=== PATIENT | female | born 1995 | race Caucasian/White ===

== ENCOUNTER 2016-10-14 12:06 | Day surgery (SDC) | payer OTHER ==
[2016-10-14 13:13] LABS: Hematocrit 42 % (35-47); Hemoglobin 13.6 g/dl (12.0-16.0); Mean Corpuscular HGB Conc 33 g/dl (31-36); Mean Corpuscular Hemoglobin 28 pg (27-31); Mean Corpuscular Volume 87 fL (80-97); Mean Platelet Volume 9 um3 (7.4-10.4); Red Blood Count 4.79 10^6/ul (4.0-5.4); Red Cell Distribution Width 13 % (10.5-15)
[2016-10-14 13:32] LABS: ALT 13 U/L (7-52); AST 14 U/L (13-39); Albumin 4.1 g/dL (3.2-5.2); Alkaline Phosphatase 48 U/L (34-104); Amylase 41 U/L (29-103); Anion Gap 6 mmol/L (2-11); BUN/Creatinine Ratio 21.8 (8-20); Blood Urea Nitrogen 12 mg/dL (6-24); C Reactive Protein 17.96 mg/L (< 5.00); CO2 Carbon Dioxide 25 mmol/L (22-32); Calcium 9.4 mg/dL (8.6-10.3); Chloride 103 mmol/L (101-111); EGFR African American 183.1 (>60); EGFR Non-African American 142.4 (>60); Globulin 3.1 g/dL (2-4); Glucose 83 mg/dL (70-100); Lipase < 10 U/L (11.0-82.0); Potassium 3.9 mmol/L (3.5-5.0); Sodium 134 mmol/L (133-145); Total Protein 7.2 g/dL (6.4-8.9)
[2016-10-14] MEDS ORDERED: Iohexol 300* (CONTRAST) 10 ML SDV IV ONE (13:41)
--- NOTE | 2016-10-14 15:22 | RAD ---
Indication: Right lower quadrant pain. Contrast: Administered 91.0 ml of OMNIPAQUE 300 mgi/ml. CT of the abdomen and pelvis was performed after oral and IV contrast administration. Coronal and sagittal reconstructed images were obtained.. The lung bases demonstrate no pleural fluid, nodules or masses. Heart is of normal size without evidence of pericardial effusion. Liver is normal size. No focal lesions or intrahepatic ductal dilatation is noted. The gallbladder demonstrates no catheter gallstones. No pericholecystic fluid or wall thickening is noted. The spleen is normal in size. Pancreas demonstrates no mass or pancreatic duct dilatation. Common duct is not dilated. No adrenal lesion is noted. The kidneys demonstrate symmetric nephrograms. No focal lesions or hydronephrosis is noted. No retroperitoneal lymphadenopathy is noted. Aorta and inferior vena cava are unremarkable. CT of the pelvis demonstrates dilated appendix with periappendiceal infiltration of FAT measuring up to 10 mm. Findings are suspicious for appendicitis. No evidence of periappendiceal abscess is noted. The uterus and ovaries are unremarkable. The colon is filled with stool. The bony structures are grossly unremarkable. IMPRESSION: Findings consistent with acute appendicitis without evidence of periappendiceal abscess.
[2016-10-14] MEDS ORDERED: Famotidine IV* 10 MG/ML 2 ML (20 mg) IV ONE (15:25)
[2016-10-14] MEDS ORDERED: Buffered Lidocaine 1% SYR 3ML* 3 ML/SYR SYRINGE INTRADERM ONE (15:25)
[2016-10-14] MEDS ORDERED: PROCHLORPERAZINE INJ 5 MG/ML 2 ML VIAL IV PRN (15:28)
[2016-10-14] MEDS ORDERED: fentaNYL* 50 MCG/ML 2 ML VIAL (100 MCG VIAL) IV PRN (15:28)
[2016-10-14] MEDS ORDERED: Morphine INJ* 2 MG/ML 1 ML CARPUJECT IV PRN (15:28)
[2016-10-14] MEDS ORDERED: oxyCODONE TAB* 5 MG TAB PO PRN (15:28)
[2016-10-14] MEDS ORDERED: Ketorolac INJ* 30 MG/ML 1 ML VIAL IV PRN (15:28)
[2016-10-14] MEDS ORDERED: Bupivacaine 0.5% W/EPI SDV* 30 ML VIAL ONE (15:51)
[2016-10-14] MEDS ORDERED: Famotidine IV* 10 MG/ML 2 ML (20 mg) ONE (15:55)
[2016-10-14] MEDS ORDERED: fentaNYL* 50 MCG/ML 2 ML VIAL (100 MCG VIAL) ONE ×3 (15:59→17:37)
[2016-10-14] MEDS ORDERED: KETAMINE HCL* 50 MG/ML 10 ML VIAL ONE (16:10)
[2016-10-14] MEDS ORDERED: Atracurium* 10 MG/ML 10 ML VIAL ONE (16:10)
[2016-10-14] MEDS ORDERED: Midazolam* 1 MG/ML 5 ML VIAL (5 MG) ONE (16:10)
--- NOTE | 2016-10-14 16:19 | ED ---
zee Ramirez Timothy, scribed for Matt Shultz MD on 10/14/16 at 1223 . Abdominal Pain/Female - HPI Summary HPI Summary: Gely Soriano is a 20 yo female presenting to [facility] with 4/10 RLQ pain since 0350 this morning. She originally presented to [facility] who recommended she present to [facility] for r/o of appendicitis. Her pain is worse when she applies pressure. She states she was nauseous this morning, but did not vomit. Her LNMP was 09/16/16, she states she is very regular and is on hormonal control. She denies any PMHx, but has a Rx for Xanax for anxiety which she takes only rarely. - History of Current Complaint Stated Complaint: ABD PAIN Time Seen by Provider: 10/14/16 12:17 Hx Obtained From: Patient Onset/Duration: Sudden Onset, Lasting Hours, Still Present Timing: Constant Severity Initially: Moderate Severity Currently: Moderate Pain Intensity: 4 Pain Scale Used: 0-10 Numeric Location: Discrete At: RLQ Radiates: No Aggravating Factor(s): Other: - pressure Alleviating Factor(s): Nothing Associated Signs and Symptoms: Positive: Nausea Allergies/Adverse Reactions: Allergies Allergy/AdvReac Type Severity Reaction Status Date / Time No Known Allergies Allergy Verified 10/14/16 14:00 PMH/Surg Hx/FS Hx/Imm Hx Previously Healthy: Yes Infectious Disease History: No Infectious Disease History: Denies: Traveled Outside the [place] in Last 30 Days - Family History Known Family History: Positive: Respiratory Disease - COPD, Other - breast CA - Social History Occupation: Student Lives: Alone Alcohol Use: Rare Hx Substance Use: No Substance Use Type: Reports: None Hx Tobacco Use: No Smoking Status (MU): Never Smoked Tobacco Review of Systems Positive: Abdominal Pain All Other Systems Reviewed And Are Negative: Yes Physical Exam - Summary Physical Exam Summary: VITAL SIGNS: Reviewed. GENERAL: Patient is a well developed and nourished female who is lying comfortable in the stretcher. Patient is not in any acute respiratory distress. HEAD AND FACE: Normocephalic and atraumatic. EYES: PERRLA, EOMI x 2, No injected conjunctiva. EARS: Hearing grossly intact. Ear canals and tympanic membranes are WNL. MOUTH: Oropharynx within normal limits. NECK: Supple, trachea is midline, no adenopathy, no JVD. CHEST: Symmetric, no tenderness at palpation LUNGS: Clear to auscultation bilaterally. No wheezing or crackles. CVS: RRR,, S1 and S2 present, no murmurs or gallops appreciated. ABDOMEN: Soft, RLQ tenderness. No signs of distention. Positive bowel sounds. No rebound no guarding, and no masses palpated. No abdominal bruit or pulsations. EXTREMITIES: FROM in all major joints, no edema, no cyanosis or clubbing. NEURO: Alert and oriented x 3. No acute neurological deficits. Speech is normal. SKIN: Dry and warm Triage Information Reviewed: Yes Vital Signs On Initial Exam: Initial Vitals Temp Pulse Resp BP Pulse Ox 99.6 F 93 16 119/97 100 10/14/16 12:09 10/14/16 12:09 10/14/16 12:09 10/14/16 12:09 10/14/16 12:09 Vital Signs Reviewed: Yes Diagnostics - Vital Signs Vital Signs Temp Pulse Resp BP Pulse Ox 10/14/16 12:09 99.6 F 93 16 119/97 100 - Laboratory Lab Results: Lab Results 10/14/16 10/14/16 10/14/16 Range/Units 13:05 13:05 13:05 WBC 11.0 H (3.5-10.8) 10^3/ul RBC 4.79 (4.0-5.4) 10^6/ul Hgb 13.6 (12.0-16.0) g/dl Hct 42 (35-47) % MCV 87 (80-97) fL MCH 28 (27-31) pg MCHC 33 (31-36) g/dl RDW 13 (10.5-15) % Plt Count 318 (150-450) 10^3/ul MPV 9 (7.4-10.4) um3 Neut % (Auto) 73.7 (38-83) % Lymph % (Auto) 18.7 L (25-47) % Cache % (Auto) 6.7 (1-9) % Eos % (Auto) 0.6 (0-6) % Baso % (Auto) 0.3 (0-2) % Absolute Neuts (auto) 8.1 H (1.5-7.7) 10^3/ul Absolute Lymphs (auto) 2.1 (1.0-4.8) 10^3/ul Absolute Monos (auto) 0.7 (0-0.8) 10^3/ul Absolute Eos (auto) 0.1 (0-0.6) 10^3/ul Absolute Basos (auto) 0 (0-0.2) 10^3/ul Absolute Nucleated RBC 0.01 10^3/ul Nucleated RBC % 0.1 Sodium 134 (133-145) mmol/L Potassium 3.9 (3.5-5.0) mmol/L Chloride 103 (101-111) mmol/L Carbon Dioxide 25 (22-32) mmol/L Anion Gap 6 (2-11) mmol/L BUN 12 (6-24) mg/dL Creatinine 0.55 (0.51-0.95) mg/dL Est GFR ( Amer) 183.1 (>60) Est GFR (Non-Af Amer) 142.4 (>60) BUN/Creatinine Ratio 21.8 H (8-20) Glucose 83 (70-100) mg/dL Lactic Acid 0.8 (0.5-2.0) mmol/L Calcium 9.4 (8.6-10.3) mg/dL Total Bilirubin 0.60 (0.2-1.0) mg/dL AST 14 (13-39) U/L ALT 13 (7-52) U/L Alkaline Phosphatase 48 (34-104) U/L C-Reactive Protein 17.96 H (< 5.00) mg/L Total Protein 7.2 (6.4-8.9) g/dL Albumin 4.1 (3.2-5.2) g/dL Globulin 3.1 (2-4) g/dL Albumin/Globulin Ratio 1.3 (1-3) Amylase 41 (29-103) U/L Lipase < 10 L (11.0-82.0) U/L Beta HCG, Quant 0.60 mIU/mL Result Diagrams: 10/14/16 13:05 10/14/16 13:05 Lab Statement: Any lab studies that have been ordered have been reviewed, and results considered in the medical decision making process. - CT A/P CT Interpretation: Positive (See Comments) - IMPRESSION: Findings consistent with acute appendicitis without evidence of periappendiceal abscess. CT Interpretation Completed By: Radiologist Abdominal Pain Fem Course/Dx - Course Course Of Treatment: . Gely Soriano is a 20 yo female presenting to [facility] with 4/10 RLQ pain since 349 this morning. She originally presented to [facility] who recommended she present to [facility] for r/o of appendicitis. Her pain is worse when she applies pressure. She states she was nauseous this morning, but did not vomit. Her LNMP was 09/16/16, she states she is very regular and is on hormonal control. She denies any PMHx, but has a Rx for Xanax for anxiety which she takes only rarely. Blood work shows and increased WBCs of 11, CRP od 17.9. Abdominal and pelvic CT IMPRESSION: Findings consistent with acute appendicitis without evidence of periappendiceal abscess. I discussed the case with Dr. Baldwin who will be consulting for the patient. After his assessment he will admit the patient to his services.\. She continues to be NPO and Patient is hemodynamically stable and A+O x 3. - Diagnoses Differential Diagnosis: Positive: Appendicitis, Constipation, Diverticulitis, Ovarian Cyst, Renal Colic Provider Diagnoses: Appendicitis - Provider Notifications Discussed Care Of Patient With: 1515 - Dr. Hare (radiology) - Informed that Pt has appendicitis. 1517 - Dr. Baldwin (surgery) - Discussed Pt condition, agrees to evaluate Pt. Instructed by Provider To: Admit As Inpatient Discharge - Discharge Plan Condition: Stable Disposition: ADMITTED TO [facility] Discharge Disposition Comment: admitted for Tx of appendicitis The documentation as recorded by the zee bolton Timothy accurately reflects the service I personally performed and the decisions made by me, Matt Shultz MD.
[2016-10-14] MEDS ORDERED: ceFOXitin 2 GM IVPREMIX* 2 GM/50 ML BAG ONE (16:20)
--- NOTE | 2016-10-14 16:29 | HP ---
H&P (Free Text) History and Physical: CC: RLQ ABD PAIN HPI: 20 YO F WITH SUDDEN ONSET OF ABD PAIN AT 3 AM LOCALIZING TO RLQ, WORSE WITH MOV'T/SNEEZE/COUGH. +N/-V. +ANOREXIA. HAD DIARRHEA YESTERDAY. ATE NORMALLY LAST PM. SHE WENT TO [facility] THEN WAS SENT TO ED FOR R/O APPENDICITIS. IN ER SHE WAS NOTED TO HAVE ELEVATED WBC AND WAS SENT FOR CT DEMONSTRATING A DILATED, FLUID FILLED APPENDIX WITH PERIAPPENDICEAL INFLAMMATORY CHANGES, C/E ACUTE APPENDICITIS. SHE HAS NO DYSURIA/HEMATURIA/VAG DISCHARGE. SHE HAS HAD NO SIMILAR PAIN IN PAST. PMH: UNREMARKABLE PSH: UNREMARKABLE MEDS: OCP NKDA SH: -TOB; ETOH X 4/WK; NO IVDA; [employer], LIVES IN [facility] CAMPUS WITH ROOMMATES. FH: UNREMARKABLE. NEG FOR ANESTHESIA COMPLICATIONS OR BLOOD CLOTS. ROS: 14 PT REVIEW COMPLETED. FINDINGS ABOVE OTHERWISE NEGATIVE. PE: Vital Signs Temp 99.6 F 10/14/16 12:09 Pulse 81 10/14/16 14:00 Resp 16 10/14/16 12:09 BP 111/80 10/14/16 13:30 Pulse Ox 98 10/14/16 14:00 HEENT: NCAT; EOMI; MMM; NO OTORHINORRHEA. NECK: SYMMETRICAL LUNGS: CTA B; NO W/R/R HEART: REG S1S2, NO M/R/G ABD: ND, +BS, SOFT, TENDER IN RLQ, +ROVSING SX. EXT: WARM NO C/C/E. Laboratory Results - last 24 hr 10/14/16 10/14/16 10/14/16 13:05 13:05 13:05 WBC 11.0 H RBC 4.79 Hgb 13.6 Hct 42 MCV 87 MCH 28 MCHC 33 RDW 13 Plt Count 318 MPV 9 Neut % (Auto) 73.7 Lymph % (Auto) 18.7 L [place] % (Auto) 6.7 Eos % (Auto) 0.6 Baso % (Auto) 0.3 Absolute Neuts (auto) 8.1 H Absolute Lymphs (auto) 2.1 Absolute Monos (auto) 0.7 Absolute Eos (auto) 0.1 Absolute Basos (auto) 0 Absolute Nucleated RBC 0.01 Nucleated RBC % 0.1 Sodium 134 Potassium 3.9 Chloride 103 Carbon Dioxide 25 Anion Gap 6 BUN 12 Creatinine 0.55 Est GFR ( Amer) 183.1 Est GFR (Non-Af Amer) 142.4 BUN/Creatinine Ratio 21.8 H Glucose 83 Lactic Acid 0.8 Calcium 9.4 Total Bilirubin 0.60 AST 14 ALT 13 Alkaline Phosphatase 48 C-Reactive Protein 17.96 H Total Protein 7.2 Albumin 4.1 Globulin 3.1 Albumin/Globulin Ratio 1.3 Amylase 41 Lipase < 10 L Beta HCG, Quant 0.60 CT: FINDINGS ABOVE IMPRESSION: 20 YO F WITH ACUTE APPENDICITIS. PLAN: LAPAROSCOPIC APPENDECTOMY. THE PROCEDURE, INDICATIONS, RISKS, BENEFITS, ALTERNATIVES, AND OPTION OF NO TREATMENT HAVE BEEN D/W THE PATIENT. WE DISCUSSED EXPECTATIONS REGARDING HOSPITALIZATION AND RECOVERY INCLUDING RETURN TO NORMAL ACTIVITY. RISKS WERE EXPLAINED INCLUDING, NOT LIMITED TO: OPEN SURGERY, BLEEDING, INFECTION, PAIN, SCARRING, BLOOD CLOTS, PNEUMONIA, VISCERAL INJURY, AND RISK OF GETA. ALL QUESTIONS ANSWERED. SHE STATES UNDERSTANDING AND AGREES TO PROCEED.
[2016-10-14] MEDS ORDERED: Lidocaine 2% PF * 5 ML VIAL ONE (16:50)
[2016-10-14] MEDS ORDERED: Dexamethasone IV* 4 MG/ML 1 ML (4 MG) ONE (16:50)
[2016-10-14] MEDS ORDERED: Propofol* 10 MG/ML 20 ML BTL IV PUSH ONE (16:50)
[2016-10-14] MEDS ORDERED: Ondansetron INJ* 2 MG/ML VIAL ONE (16:50)
[2016-10-14] MEDS ORDERED: Neostigmine Methylsulfate* 2 MG/2 ML SYRINGE ONE (16:50)
[2016-10-14] MEDS ORDERED: Glycopyrrolate IV* 0.2 MG/ML 1 ML VIAL ONE (16:50)
[2016-10-14] MEDS ORDERED: Phenylephrine INJ* 10 MG/ML 1 ML VIAL (10 MG) ONE (16:50)
[2016-10-14] MEDS ORDERED: oxyCODONE/Acetamin 5/325 MG* TAB PO PRN ×2 (17:23)
--- NOTE | 2016-10-14 17:26 | SURGPN ---
Brief Operative Note - Surgery Procedures: PRE/POSTOP DX: ACUTE APPENDICITIS PROC: LAP APPENDECTOMY SURG: MECENAS ANES: GET/FELLOWS EBL: MIN IVF: LR SPEC: APPENDIX DRAIN: NONE COMPL: NONE COND: STABLE TO RR, EXTUBATED.
[2016-10-14] MEDS ORDERED: PROCHLORPERAZINE INJ 5 MG/ML 2 ML VIAL ONE (17:42)
[2016-10-14] MEDS ORDERED: Scopolamine 1.5 mg* PATCH ONE (17:59)
[2016-10-14 19:31] VITALS: BP 106/86
--- NOTE | 2016-10-15 12:25 | OP ---
DATE OF OPERATION: 10/14/16 - [facility] DATE OF : [birth year] SURGEON: Sam Baldwin MD. PUBLIC FINANCE SPECIALIST: None. ANESTHESIOLOGIST: Ángel Cruz MD ANESTHESIA: General endotracheal. PRE-OP DIAGNOSIS: Acute appendicitis. POST-OP DIAGNOSIS: Acute appendicitis. OPERATIVE PROCEDURE: Laparoscopic appendectomy. ESTIMATED BLOOD LOSS: Minimal. IV FLUIDS: Crystalloid. SPECIMEN: Appendix. DRAINS: None. COMPLICATIONS: None. COUNTS: Instrument, needle, and sponge counts were correct. DESCRIPTION OF PROCEDURE: The patient was brought to the operating room and placed on the table supine. Sequential compression devices were placed on both lower extremities. She received appropriate intravenous antibiotics. She was administered general anesthesia. Her abdomen was prepped and draped in the usual sterile fashion. Time-out was performed. Local anesthetic was infiltrated into the skin and soft tissue prior to making each incision. Entry to the abdomen was through a transumbilical vertical incision using an open technique. After accessing the peritoneal cavity, carbon dioxide was insufflated to a pressure of 15 mmHg through 5-mm trocar. This was exchanged for a 12-mm trocar subsequently. Under direct visualization , 5 mm trocars were placed in the suprapubic midline and in the left lower quadrant. The appendix was identified. It appeared to have early separative changes. No evidence of gangrene or perforation. The appendix was elevated. A window was created in the mesentery of the appendix at the base and the appendix was divided from the cecum using the EndoGIA stapler with serrano cartridge. The mesentery of the appendix was divided with the EndoGIA stapler with vergara cartridge. The appendix was placed into an endoscopic retrieval bag and retrieved through the umbilical site. The ports were then removed under direct visualization. The umbilical wound was closed with 0 Polysorb in an interrupted fashion to approximate the fascia. Skin incisions were then closed with 4-0 Monocryl in a subcuticular fashion. DermaFlex was applied to the wounds. In addition, Steri-Strips were applied at the 5 mm sites. The patient tolerated the procedure well, was extubated uneventfully and transferred to the recovery room in stable condition. CC: [facility]* [id number]/[facility] [place] #: [id number] MTDD
== END 2016-10-14 19:36 | disposition home or self-care (01) ==
LOC: ED 12:06 → OR 16:01
PROVIDERS: ATTEND Surgery
DX: K35.80 Unspecified acute appendicitis (principal)
CPT/HCPCS: 36415; 74177; 80053; 82150; 83605; 83690; 84702; 85025; 86140; 88304; 96374; 96375; 99283; A9270-GY; C1776; J0694; J0780; J1100; J2250; J2405; J2704; J3010; Q9967